=== PATIENT | male | born 1935 | race Caucasian/White ===

== ENCOUNTER 2017-06-22 21:01 | Inpatient (IN) ==
[2017-06-22] MEDS ORDERED: IOPAMIDOL 100 ML BOTTLE IJ ONE (21:02)
[2017-06-22] MEDS ORDERED: 0.9 % SODIUM CHLORIDE 1,000 ML IV ONE (21:22)
[2017-06-22] MEDS ORDERED: MINERAL OIL 1 DOSE ENEMA PR ONE ×2 (21:36→23:51)
[2017-06-22] MEDS ORDERED: FLEETS ADULT ENEMA PR ONE (21:57)
[2017-06-22] MEDS ORDERED: HYDROmorphone 2 MG/ML SYRINGE IV SCH (22:00)
[2017-06-22] MEDS: HYDROmorphone 2 MG/ML SYRINGE IV PRN (22:15)
[2017-06-22 22:27] LABS: Basophils # (Auto) 0 K/mcL (0.0-0.3); Basophils % (Auto) 0.4 % (0.0-2.0); Eosinophils # (Auto) 0.2 K/mcL (0.0-0.7); Granulocytes % (Auto) 71.9 % (38.0-78.0); Lymphocytes # (Auto) 1.4 K/mcL (1.5-4.8); Lymphocytes % (Auto) 17.3 % (15.5-49.0); Mean Corpuscular HGB Conc 33.7 g/dL (31.0-36.0); Mean Corpuscular Hemoglobin 30.7 pg (26.0-34.0); Monocytes # (Auto) 0.6 K/mcL (0.1-0.9); Monocytes % (Auto) 7.4 % (1.0-12.0); Platelet Count 185 K/mcL (140-440); RBC 4.93 M/mcL (4.50-5.90); Red Cell Distribution Width 12.8 % (11.5-14.5)
[2017-06-22 22:45] LABS: ALT/SGPT 28 U/l (0-40); Albumin 4.3 gm/dL (3.2-5.2); Alkaline Phosphatase 64 U/L (39-117); Blood Urea Nitrogen 32 mg/dl (8-23)
[2017-06-22] MEDS ORDERED: HYDROmorphone 2 MG/ML SYRINGE IV ONE (23:50)
[2017-06-23] MEDS: HYDROmorphone 2 MG/ML SYRINGE IV PRN ×9 (01:06→23:18)
[2017-06-23] MEDS ORDERED: GLYCERIN, ADULT 1 SUPP.RECT PR ONE (01:28)
[2017-06-23] MEDS ORDERED: ONDANSETRON ODT 4 MG TABLET ONE (01:36)
[2017-06-23] MEDS ORDERED: NALOXONE HCL 0.4 MG/ML VIAL IV PRN (04:03)
[2017-06-23] MEDS ORDERED: ONDANSETRON 4 MG/2 ML VIAL IV PRN (04:03)
[2017-06-23] MEDS ORDERED: POLYETHYLENE GLYCOL 3350 17 GM PACKET PO ONE (04:08)
--- NOTE | 2017-06-23 04:10 | Emergency Department Note ---
Abdominal Pain HPI - General Chief Complaint: Abdominal Pain Stated Complaint: abdominal pain Time Seen by Provider: 06/22/17 21:09 Source: patient Mode of arrival: ambulatory Limitations: no limitations - History of Present Illness HPI Narrative: 81-year-old male with rectal pain since 4 PM on 06/22/2017 and constipation without bowel movement 5 days. Also with belly pain in the lower quadrants. He has had episodes like this 3 times before, where his bowels would not move for a week, but they have always resolved with significant interventions to relieve constipation. In particular the last time he was in, what sounds like a soapsuds enema was used with good results. Prior to coming in, he used a suppository earlier this week and Dulcolax without effect. He does have a significant history of prior colectomy from Dr. Carr many years ago and has had difficulty moving his bowels ever since - Related Data Home Medications Medication Instructions Recorded Confirmed amlodipine 5 mg tablet 5 mg PO QDAY 05/21/17 05/21/17 atorvastatin 40 mg tablet 40 mg PO QDAY 05/21/17 05/21/17 losartan 100 1 tab PO QDAY 05/21/17 05/21/17 mg-hydrochlorothiazide 25 mg tablet multivitamin tablet 1 tab-cap PO QDAY 05/21/17 05/21/17 tramadol 50 mg tablet 50 mg PO Q4H PRN tab 05/21/17 05/21/17 fentanyl 50 mcg/hr transdermal 1 patch TRANSDERMA Q72H 05/29/17 05/29/17 patch Allergies Allergy/AdvReac Type Severity Reaction Status Date / Time codeine Allergy Unknown Unknown Verified 06/22/17 21:05 Methadone Allergy Unknown Unknown Verified 06/22/17 21:05 Oxycodone Allergy Unknown Unknown Verified 06/22/17 21:05 Review of Systems All systems ED: reviewed and negative except as stated. Abdominal Pain PMH - Past Medical History Attestation: Yes: The following information was validated with the patient. Medical history: Reports: arthritis, coronary artery disease, hyperlipidemia, hypertension, kidney stones, thyroid disease Surgical history ED: Reports: cholecystectomy, colectomy, tonsillectomy - Social History Smoking status: Never smoker Physical Exam Hunched over in the position secondary to cramping abdominal pain. normocephalic atraumatic. Conjunctive are clear sclerae were nonicteric. No nasal discharge or congestion. Oropharynx pink and moist. Neck is supple without lymphadenopathy thyromegaly. Heart is regular rate and rhythm no murmurs appreciated. Lungs clear to auscultation bilaterally without wheezes rales rhonchi or respiratory distress. Abdomen is soft nontender except for lower quadrants are diffusely tender. No CVA tenderness or peritoneal signs. Some guarding but no rigidity. He does have some hyperactive bowel sounds in the right lower quadrant. No pedal edema. +2 radial pulse. Alert oriented and able to answer questions. No dysarthria or ataxia - General Limitations: no limitations Course Vital Signs Temperature 98.9 F 06/22/17 21:01 Pulse Rate 96 H 06/22/17 21:01 Respiratory Rate 20 06/22/17 21:01 Blood Pressure 127/78 06/22/17 21:01 Pulse Oximetry (%) 97 06/22/17 21:01 Temperature 98.9 F 06/22/17 21:01 Pulse Rate 78 06/22/17 23:39 Respiratory Rate 12 06/22/17 23:39 Blood Pressure 133/85 06/22/17 23:39 Pulse Oximetry (%) 95 06/22/17 23:39 Abdominal Pain - Lab Data Lab results reviewed: Yes I reviewed the patient's lab results. Result diagrams: 06/22/17 21:22 06/22/17 21:21 Lab Results 06/22/17 06/22/17 06/22/17 Range/Units 21:21 21:22 21:43 WBC 8.2 (4.5-11.0) K/mcL RBC 4.93 (4.50-5.90) M/mcL Hgb 15.1 (13.5-16.5) g/dL Hct 44.8 (41.0-55.0) % MCV 91.0 (80.0-100.0) fL MCH 30.7 (26.0-34.0) pg MCHC 33.7 (31.0-36.0) g/dL RDW 12.8 (11.5-14.5) % Plt Count 185 (140-440) K/mcL MPV 10.5 H (7.4-10.4) fL Gran % 71.9 (38.0-78.0) % Lymph % (Auto) 17.3 (15.5-49.0) % Wagoner % (Auto) 7.4 (1.0-12.0) % Eos % (Auto) 3.0 (0.0-7.0) % Baso % (Auto) 0.4 (0.0-2.0) % Gran # 5.9 (1.8-8.0) K/mcL Lymph # (Auto) 1.4 L (1.5-4.8) K/mcL Wagoner # (Auto) 0.6 (0.1-0.9) K/mcL Eos # (Auto) 0.2 (0.0-0.7) K/mcL Baso # (Auto) 0 (0.0-0.3) K/mcL VBG Lactic Acid 1.5 (0.5-2.2) mmol/L Sodium 140 (133-145) mmol/L Potassium 4.1 (3.3-5.1) mmol/L Chloride 102 (96-108) mmol/L Carbon Dioxide 24 (22-30) mmol/L Anion Gap 14.0 (8-16) BUN 32 H (8-23) mg/dl Creatinine 1.1 (0.7-1.2) mg/dl GFR Calculation 64 Glucose 99 (70-105) mg/dL Calcium 9.0 (8.6-10.4) mg/dl Total Bilirubin 0.7 (0.0-1.0) mg/dL AST 23 (0-37) U/l ALT 28 (0-40) U/l Alkaline Phosphatase 64 (39-117) U/L Total Protein 6.5 (5.9-8.4) gm/dL Albumin 4.3 (3.2-5.2) gm/dL Globulin 2.2 (2.2-3.7) gm/dL Albumin/Globulin Ratio 2.0 (1.0-2.3) - Radiology Data Radiology results reviewed: Yes I reviewed the patient's radiology results. Abdominal x-ray series shows nonspecific bowel gas pattern with lots of stool Disposition Pt seen by [facility] only: No Clinical Impression: Abdominal pain Qualifiers: Abdominal location: generalized Qualified Code(s): R10.84 - Generalized abdominal pain Constipation Qualifiers: Constipation type: unspecified constipation type Qualified Code(s): K59.00 - Constipation, unspecified Summary: We initially tried to relieve his constipation with fleets enema. Nursing staff attempted manual disimpaction as well, but the rectal vault just had soft stool in it. However he had poor rectal tone despite 2 fleets enemas to soapsuds enemas as suppository were unable to successfully produce a significant bowel movement. It was very irritating to his rectum. He had several doses of pain medicines in an attempt to control his belly pain as well. After attempting all this I did call Dr. Cj Rodriguez who advised me to try milk/ molasses enema. This was not successful either. Dr. Rodriguez advised me to go ahead and admit the patient to him for further care: In the interim we will go ahead and do another milk molasses enema, and allow him to sip on some MiraLAX. Transition orders are written Disposition: Xfer As Outpt/Obs ([facility]) Condition: Serious Referrals: Morro Goodwin DO [Primary Care Provider] -
[2017-06-23] MEDS ORDERED: IOPAMIDOL 100 ML BOTTLE IV ONE (05:07)
[2017-06-23] MEDS: 0.9 % SODIUM CHLORIDE 1,000 ML IV SCH ×3 (05:42→15:42)
[2017-06-23] MEDS: METHYLNALTREXONE BROMIDE 12 MG/0.6 ML SYRINGE SQ SCH (08:09)
[2017-06-23] MEDS: METOCLOPRAMIDE 10 MG/2 ML VIAL IV SCH ×4 (08:09→23:25)
--- NOTE | 2017-06-23 08:10 | XRay Report ---
CLINICAL INFORMATION: Abdominal pain COMPARISON: None. FINDINGS: Large amount of stool is present within the colon. Colon remains normal caliber. Stomach and small bowel are normal. No free air or pathologic calcification. Chronic elevation right diaphragm seen as before IMPRESSION: Moderate colonic stool, but no acute disease Interpreted and Authenticated by: Morro Madrigal 06/23/17
--- NOTE | 2017-06-23 10:04 | Cat Scan Report ---
CLINICAL INFORMATION: Constipation and abdominal pain COMPARISON: 01/05/[address] TECHNIQUE: Following enteric contrast, 80 cc of Isovue-300 were injected intravenously, and 60 seconds later, 2.5 mm helical slices were obtained from the mid heart through the subtrochanteric regions. Following reconstruction, 2.5 mm sagittal, coronal and axial reformatted images were processed and reviewed at bone, lung and soft tissue windows. Five minutes later, 5 mm helical slices were obtained from the mid heart through the kidneys and viewed at soft tissue windows. FINDINGS: Marked chronic elevation right diaphragm with subsegmental atelectasis in the overlying lower lobe demonstrates long-term stability. The remaining lung bases are normal. There is no effusions. The visualized heart is mildly enlarged and there is heavy fibrofatty and calcified atherosclerotic plaque in the visualized coronary arteries - particularly the LAD. Suspect stenosis or occlusion in this region. A moderate size hiatal hernia has increased from the previous study Images through the abdomen show the liver to be normal in size without focal lesion. The gallbladder is surgically absent. Intrahepatic and common bile ducts are normal caliber colon CBD is 6 mm. The pancreas, spleen, both adrenal glands kidneys and aorta, including aortic branches, are normal in size, configuration and attenuation without focal lesion. No free air, free fluid or adenopathy. There is a large amount of stool distending the rectum with a moderate amount of stool in the remaining colon. The colon, appendix and small bowel are normal in caliber however. On axial image 56, there is a diverticulum or atypical ulcer in the anterior wall of the gastric antrum. This is new from the previous study The urinary bladder, prostate and seminal vesicles are normal. There is no free air, free fluid and no adenopathy. Bone windows show postsurgical changes in lower lumbar spine, but no significant osseous abnormality.A 7 cm by 2.2 cm cyst within the left iliopsoas muscle belly is identical to the 2012 study. IMPRESSION: 1. Large amount of stool within the rectum with a moderate amount colonic stool compatible with constipation. 2. 17 mm ulcer versus diverticulum in the anterior wall of the gastric antrum. Suggest medical treatment for ulcer and consider endoscopic correlation. If this does represent an ulcer, the patient may be at risk for rupture 3. Extremely heavy fibrofatty calcific plaque within the left main and LAD coronary arteries. Suspect hemodynamically significant stenosis. Consider cardiology referral for stress testing or CT coronary arteriogram 4. Chronic elevation right diaphragm with compressive atelectasis in the right lower lobe - stable 5. Moderate size hiatal hernia - slight increase in 2012 6. 7 x 2 cm cyst in the left iliopsoas muscle belly - stable since 2012. If asymptomatic, this would be clinically insignificant Interpreted and Authenticated by: Morro Madrigal 06/23/17
--- NOTE | 2017-06-23 10:29 | XRay Report ---
CLINICAL INFORMATION: ,Severe constipation COMPARISON: None. FINDINGS: Large amount of stool present within the colon. The colon small bowel, and stomach are normal caliber however. No free air soft tissue mass or organomegaly. Contrast seen in the urinary bladder appears normal IMPRESSION: Moderate colonic stool - no acute disease Interpreted and Authenticated by: Morro Madrigal 06/23/17
--- NOTE | 2017-06-23 13:56 | General Surg History&Physical ---
History of Present Illness Patient information: Note initiated : 06/23/17 at 1:53 pm Service Date, if different from initiated Date: [] Patient: Sven Michaels 81 y/o M admitted on 06/23/17 for abdominal pain. Chief Complaint: [] Chief complaint: Severe constipation HPI: Mr. Michaels is a 81 year old M 81-year-old male with greater than 24 hour history of crampy abdominal pain with inability to have a bowel movement for the past 5 days. He takes tramadol on a daily basis for many years. He also recently used transdermal fentanyl but stopped that because of nausea and vomiting. He tried multiple njec-[id number]-bqoxpsy remedies prior to coming to the emergency room without results. He was seen in the emergency room and was noted to have a large fecal ball in his rectum. He had multiple enemas including fleets, mineral oil, sepsis, milk of molasses.; All without results he was having more crampy abdominal pain and has been admitted for continued treatment. He gives a history of having had partial colectomy in the past and states that he has had symptoms since that time. The reason for the partial colectomy is not known. Review of Systems - Constitutional fatigue, malaise, weakness - EENT Nose, mouth and throat: abnormal hearing, dizziness - Cardiovascular dyspnea on exertion, no chest pain at rest, no claudication, no edema, no palpatations, no pedal edema - Respiratory no cough, no dyspnea on exertion, no wheezing - Gastrointestinal abdominal pain, bloating, change in bowel habits, constipation, cramping - Genitourinary urinary hesitancy, urinary urgency, other (History of kidney stones) - Musculoskeletal back pain (Never happened), joint swelling, myalgias - Integumentary other (History of skin cancer) - Neurological dizziness, tremor(s), vertigo, weakness - Psychiatric visual hallucinations - Endocrine excessive sweating, heat intolerance - Hematologic/Lymphatic no easy bleeding, no easy bruising, no lymphadenopathy - Allergic/Immunologic no tongue swelling, no throat swelling, no uticaria, no wheezing, no lip swelling Past History Past medical history: Degenerative arthritis Coronary artery disease with minimal stenosis by angiogram Hyperlipidemia Hypertension History of kidney stones Hypothyroidism Multiple skin cancers Past surgical history: Cholecystectomy Partial colectomy Past family history: Hypertension Past social history: Former smoker Former drinker Denies drug use Is Medications and Allergies Home Medications Medication Instructions Recorded Confirmed Type amlodipine 5 mg tablet 5 mg PO QDAY 05/21/17 06/23/17 History atorvastatin 40 mg tablet 40 mg PO QDAY 05/21/17 06/23/17 History losartan 100 1 tab PO QDAY 05/21/17 06/23/17 History mg-hydrochlorothiazide 25 mg tablet multivitamin tablet 1 tab-cap PO QDAY 05/21/17 06/23/17 History tramadol 50 mg tablet 100 mg PO DAILY tab 05/21/17 06/23/17 History traMADol 50 mg PO HS 06/23/17 06/23/17 History Allergies Allergy/AdvReac Type Severity Reaction Status Date / Time codeine Allergy Unknown Unknown Verified 06/22/17 21:05 Methadone Allergy Unknown Unknown Verified 06/22/17 21:05 Oxycodone Allergy Unknown Unknown Verified 06/22/17 21:05 Exam Temp Pulse Resp BP Pulse Ox 98.5 F 78 18 116/72 97 06/23/17 11:45 06/23/17 06:16 06/23/17 11:45 06/23/17 11:45 06/23/17 11:45 - General physical appearance well developed, well nourished, moderate distress, moderate pain - Eyes PERRL, normal ocular movement - ENT normal pinna, normal nares, normal mucosa, no hearing loss, no congestion - Head Head exam IM: Present: atraumatic, normocephalic - Neck no masses, no bruits, trachea midline, no lymphadectomy, no venous distension - Cardiovascular Cardiovascular exam IM: Present: normal rate and rhythm, RRR, +S1, +S2. Absent : JVD Type of murmur IM: Present: blowing, systolic Intensity IM: 2/6 - Respiratory normal expansion, normal respiratory effort, clear to percussion, clear to auscultation - Abdomen Abdomen: Present: soft, tender, bowel sounds, distended (Mild distention of lower abdomen with tenderness in the hypogastric area; good active bowel sounds ; well-healed incision in right subcostal and midline from xiphoid to pubis) Hernia: Present: none - Genitourinary Present: normal penis with no external lesions - Rectum Rectum: Present: normal sphincter tone, no hemorrhoids, no tenderness, no masses , no bleeding - Integumentary Present: no rash, no growths, no abnormal pigmentation - Neurologic Present: normal coordination, normal sensation - Musculoskeletal Present: normal gait, normal posture - Psychiatric Present: oriented to time, oriented to person, oriented to place, speech is normal, memory intact Assessment and Plan (1) Constipation due to pain medication therapy Relistor 12 mg subcu daily Reglan 10 mg IV every 6 MiraLAX 17 g in 8 ounces of liquid every 6 hours Follow-up abdominal x-rays in the morning Status: Acute (2) Osteoarthritis Status: Chronic (3) Hypothyroidism Status: Chronic (4) Back pain Status: Chronic (5) Joint pain Status: Chronic (6) Hypertension, essential Reinstitute antihypertensives when blood pressure is elevated more Status: Chronic (7) CAD (coronary artery disease) Status: Chronic Comment: cardiac cath in [place] indicated minimal CAD
[2017-06-23] MEDS: POLYETHYLENE GLYCOL 3350 17 GM PACKET PO SCH ×2 (15:39→20:16)
[2017-06-23] MEDS ORDERED: ACETAMINOPHEN 325 MG TABLET PO ONE (23:49)
[2017-06-24] MEDS: POLYETHYLENE GLYCOL 3350 17 GM PACKET PO SCH ×4 (02:06→20:43)
[2017-06-24] MEDS: 0.9 % SODIUM CHLORIDE 1,000 ML IV SCH ×2 (04:00→11:30)
[2017-06-24] MEDS: METOCLOPRAMIDE 10 MG/2 ML VIAL IV SCH ×4 (05:42→23:33)
[2017-06-24 06:03] LABS: Basophils # (Auto) 0 K/mcL (0.0-0.3); Basophils % (Auto) 0.2 % (0.0-2.0); Eosinophils # (Auto) 0.1 K/mcL (0.0-0.7); Eosinophils % (Auto) 0.8 % (0.0-7.0); Granulocytes % (Auto) 80.6 % (38.0-78.0); Lymphocytes # (Auto) 1.3 K/mcL (1.5-4.8); Lymphocytes % (Auto) 9.9 % (15.5-49.0); Mean Cell Volume 92.2 fL (80.0-100.0); Mean Corpuscular Hemoglobin 31.3 pg (26.0-34.0); Monocytes # (Auto) 1.2 K/mcL (0.1-0.9); Monocytes % (Auto) 8.5 % (1.0-12.0); Platelet Count 158 K/mcL (140-440); RBC 4.29 M/mcL (4.50-5.90); Red Cell Distribution Width 12.7 % (11.5-14.5)
[2017-06-24 06:24] LABS: Blood Urea Nitrogen 16 mg/dl (8-23)
--- NOTE | 2017-06-24 08:54 | XRay Report ---
CLINICAL INFORMATION: Constipation COMPARISON: 06/23/2017. FINDINGS: There is only minimal colonic stool on today's study following presumed colonic cleansing. Stool gas pattern is normal. No free air, pathologic calcification or soft tissue mass. Chronic elevation right diaphragm is unchanged IMPRESSION: Only minimal stool following colonic cleansing. No acute disease Interpreted and Authenticated by: Morro Madrigal 06/24/17
[2017-06-24] MEDS: HYDROmorphone 2 MG/ML SYRINGE IV PRN ×2 (09:21→15:20)
[2017-06-24] MEDS: METHYLNALTREXONE BROMIDE 12 MG/0.6 ML SYRINGE SQ SCH (09:22)
[2017-06-24] MEDS ORDERED: PNEUMOCOCCAL 23-VAL P-SAC VAC 0.5 ML VIAL IM ONE (10:00)
[2017-06-24] MEDS: metroNIDAZOLE 500 MG/100 ML BAG IV SCH ×3 (13:53→23:33)
[2017-06-24] MEDS: PIPERACILLIN SODIUM/TAZOBACTAM 3.375 GM in DEXTROSE 5% IN WATER 50 ML IV SCH ×3 (14:48→20:43)
--- NOTE | 2017-06-24 15:10 | General Surgery Progress Note ---
Subjective Patient reports: feels better, pain is less, tolerating liquids well, flatus, bowel movement, fever Narrative: Note initiated : 06/24/17 at 3:08 pm Service Date, if different from initiated Date: [] Patient: Sven Michaels 81 y/o M admitted on 06/23/17 for Abdominal Pain/ Constipation. Chief Complaint: [Patient feels much better today. He had multiple large bowel movements since last evening and his stools are now loose. He does not have any discomfort but he had fever last evening and his white blood count today is 13.5. He does not have a clinical picture of an acute abdomen but he will need to be started on antibiotics. He denies nausea or vomiting. X-ray this morning shows gas throughout his colon but significant reduction in the fecal load in his colon.] Objective Temp Pulse Resp BP Pulse Ox 98.3 F 66 14 108/71 95 06/24/17 11:58 06/24/17 11:58 06/24/17 11:58 06/24/17 11:58 06/24/17 11:58 - Additional Data Intake & Output - Last 24 hours: Intake & Output 06/22/17 06/23/17 06/24/17 06/25/17 05:59 05:59 05:59 05:59 Intake Total 1893 / 1893 1415 / 1415 Output Total 2175 / 2175 950 / 950 Balance -282 / -282 465 / 465 Weight 218 lb 8 oz - General physical appearance well developed, no distress, no pain, chronically ill - Eyes PERRL - ENT no congestion - Neck no venous distension - Respiratory normal respiratory effort, clear to auscultation - Cardiovascular Cardiovascular exam: Present: irregular rhythm, +S1, +S2, systolic murmur. Absent: gallop, JVD - Abdomen soft, non tender, bowel sounds (Abdomen is nondistended and he has very active bowel sounds without tenderness or guarding) - Integumentary no rash, no growths, no abnormal pigmentation - Neurologic normal coordination, normal sensation - Musculoskeletal normal gait, normal posture - Psychiatric oriented to time, oriented to person, oriented to place, speech is normal, memory intact - Labs 06/24/17 05:00 06/24/17 05:00 Diabetes panel 06/24/17 Range/Units 05:00 Sodium 137 (133-145) mmol/L Potassium 3.9 (3.3-5.1) mmol/L Chloride 101 (96-108) mmol/L Carbon Dioxide 23 (22-30) mmol/L BUN 16 (8-23) mg/dl Creatinine 0.9 (0.7-1.2) mg/dl Glucose 112 H (70-105) mg/dL Calcium 8.3 L (8.6-10.4) mg/dl Calcium panel 06/24/17 Range/Units 05:00 Calcium 8.3 L (8.6-10.4) mg/dl Pituitary panel 06/24/17 Range/Units 05:00 Sodium 137 (133-145) mmol/L Potassium 3.9 (3.3-5.1) mmol/L Chloride 101 (96-108) mmol/L Carbon Dioxide 23 (22-30) mmol/L BUN 16 (8-23) mg/dl Creatinine 0.9 (0.7-1.2) mg/dl Glucose 112 H (70-105) mg/dL Calcium 8.3 L (8.6-10.4) mg/dl Adrenal panel 06/24/17 Range/Units 05:00 Sodium 137 (133-145) mmol/L Potassium 3.9 (3.3-5.1) mmol/L Chloride 101 (96-108) mmol/L Carbon Dioxide 23 (22-30) mmol/L BUN 16 (8-23) mg/dl Creatinine 0.9 (0.7-1.2) mg/dl Glucose 112 H (70-105) mg/dL Calcium 8.3 L (8.6-10.4) mg/dl Assessment and Plan (1) Constipation due to pain medication therapy Status: Acute Assessment and plan: Significantly improved; will give another dose of Relistor in the morning and make plans for probable discharge Current Visit: Yes (2) Osteoarthritis Status: Chronic Current Visit: No (3) Hypothyroidism Status: Chronic Current Visit: No (4) Back pain Status: Chronic Current Visit: No (5) Joint pain Status: Chronic Current Visit: No (6) Hypertension, essential Status: Chronic Current Visit: No (7) CAD (coronary artery disease) Problem details: cardiac cath in [place] indicated minimal CAD Status: Chronic Current Visit: No - Time Spent With Patient Total time spent is greater than 50% in coordination of care (as documented) at patient's floor/unit and/or counseling patient:
[2017-06-25] MEDS: PIPERACILLIN SODIUM/TAZOBACTAM 3.375 GM in DEXTROSE 5% IN WATER 50 ML IV SCH ×4 (01:50→20:57)
[2017-06-25] MEDS: POLYETHYLENE GLYCOL 3350 17 GM PACKET PO SCH ×4 (01:54→20:57)
[2017-06-25] MEDS: metroNIDAZOLE 500 MG/100 ML BAG IV SCH ×4 (05:03→23:32)
[2017-06-25] MEDS: METOCLOPRAMIDE 10 MG/2 ML VIAL IV SCH ×4 (05:25→23:32)
[2017-06-25 05:51] LABS: Basophils # (Auto) 0 K/mcL (0.0-0.3); Basophils % (Auto) 0.4 % (0.0-2.0); Eosinophils # (Auto) 0.3 K/mcL (0.0-0.7); Granulocytes % (Auto) 77.8 % (38.0-78.0); Lymphocytes # (Auto) 1.3 K/mcL (1.5-4.8); Lymphocytes % (Auto) 11.3 % (15.5-49.0); Mean Cell Volume 92.1 fL (80.0-100.0); Mean Corpuscular Hemoglobin 31.3 pg (26.0-34.0); Monocytes # (Auto) 0.9 K/mcL (0.1-0.9); Monocytes % (Auto) 7.5 % (1.0-12.0); Platelet Count 161 K/mcL (140-440); RBC 4.31 M/mcL (4.50-5.90); Red Cell Distribution Width 12.5 % (11.5-14.5)
[2017-06-25 06:14] LABS: ALT/SGPT 27 U/l (0-40); Albumin 3.2 gm/dL (3.2-5.2); Albumin/Globulin Ratio 1.3 (1.0-2.3); Alkaline Phosphatase 55 U/L (39-117); Bilirubin,Direct 0.3 mg/dL (0.0-0.3); Blood Urea Nitrogen 12 mg/dl (8-23); Gamma Glutamyl Transpeptidase 16 U/L (8-61); Magnesium 2.1 mg/dL (1.6-2.5); Uric Acid 3.6 mg/dL (2.5-8.0)
--- NOTE | 2017-06-25 08:17 | XRay Report ---
CLINICAL INFORMATION: Follow constipation COMPARISON: 06/24/2017 FINDINGS: There are scattered air-fluid levels within nondilated small and large bowel. Findings most compatible with mild ileus. There is no significant stool remaining within the colon. No free air, soft tissue mass or organomegaly. The right diaphragm is markedly elevated IMPRESSION: No residual stool following colonic cleansing. Mild ileus pattern Interpreted and Authenticated by: Morro Madrigal 06/25/17
[2017-06-25] MEDS: METHYLNALTREXONE BROMIDE 12 MG/0.6 ML SYRINGE SQ SCH (08:52)
[2017-06-25] MEDS: ACETAMINOPHEN 325 MG TABLET PO PRN ×2 (11:39→22:28)
[2017-06-25] MEDS ORDERED: POTASSIUM PHOSPHATE 40 MEQ in DEXTROSE 5% IN WATER 500 ML IV ONE (13:00)
--- NOTE | 2017-06-25 15:09 | General Surgery Progress Note ---
Subjective Patient reports: still having pain, tolerating a regular diet, flatus, bowel movement, diarrhea, fever Narrative: Note initiated : 06/25/17 at 3:08 pm Service Date, if different from initiated Date: [] Patient: Sven Michaels 81 y/o M admitted on 06/23/17 for Abdominal Pain/ Constipation. Chief Complaint: [Patient states that he does not feel as well as on yesterday. He had lower abdominal pain with low grade fever last evening. He feels better now. He is still having multiple liquid stools. Repeat CT was done and this shows a thickened rectum with some inflammation in the perirectal space of uncertain etiology. Musculoskeletal possibility of stercoral rashes ulcer or severe proctitis. Discussed with him the potential need for colonoscopy. I will determine over the next day or so whether or not it should be done this hospitalization or if he can be discharged and have the procedure done as an outpatient. He has not had rectal bleeding documented but will get Hemoccults OF His next 3 bowel movements.] Objective Temp Pulse Resp BP Pulse Ox 98.1 F 65 16 111/62 96 06/25/17 11:57 06/25/17 03:25 06/25/17 11:57 06/25/17 11:57 06/25/17 11:57 - Additional Data Intake & Output - Last 24 hours: Intake & Output 06/23/17 06/24/17 06/25/17 06/26/17 05:59 05:59 05:59 05:59 Intake Total 1893 / 1893 2835 / 2835 830 / 830 Output Total 2175 / 2175 2125 / 2125 Balance -282 / -282 710 / 710 830 / 830 Weight 218 lb 8 oz 219 lb 219 lb - General physical appearance moderate distress, moderate pain, chronically ill - Eyes PERRL - ENT no congestion - Neck no venous distension - Respiratory clear to auscultation - Cardiovascular Cardiovascular exam: Present: normal rate and rhythm, RRR, +S1, +S2. Absent: gallop, JVD, rubs - Abdomen soft, non tender (Abdomen is soft nondistended and nontender with good active bowel sounds. There is no palpable mass) - Genitourinary normal penis with no external lesions, testicles present, testicles non-tender - Rectum no hemorrhoids, no tenderness, no bleeding - Integumentary no rash, no growths, no abnormal pigmentation - Neurologic normal coordination, normal sensation - Musculoskeletal normal gait, normal posture - Psychiatric oriented to time, oriented to person, oriented to place, speech is normal, memory intact - Labs 06/25/17 04:42 06/25/17 04:42 Diabetes panel 06/25/17 Range/Units 04:42 Sodium 141 (133-145) mmol/L Potassium 4.1 (3.3-5.1) mmol/L Chloride 104 (96-108) mmol/L Carbon Dioxide 25 (22-30) mmol/L BUN 12 (8-23) mg/dl Creatinine 1.0 (0.7-1.2) mg/dl Glucose 102 (70-105) mg/dL Calcium 8.3 L (8.6-10.4) mg/dl AST 22 (0-37) U/l ALT 27 (0-40) U/l Alkaline Phosphatase 55 (39-117) U/L Total Protein 5.6 L (5.9-8.4) gm/dL Albumin 3.2 (3.2-5.2) gm/dL Triglycerides 60 (<150) mg/dl Calcium panel 06/25/17 Range/Units 04:42 Calcium 8.3 L (8.6-10.4) mg/dl Phosphorus 2.5 L (2.7-4.5) mg/dL Albumin 3.2 (3.2-5.2) gm/dL Pituitary panel 06/25/17 Range/Units 04:42 Sodium 141 (133-145) mmol/L Potassium 4.1 (3.3-5.1) mmol/L Chloride 104 (96-108) mmol/L Carbon Dioxide 25 (22-30) mmol/L BUN 12 (8-23) mg/dl Creatinine 1.0 (0.7-1.2) mg/dl Glucose 102 (70-105) mg/dL Calcium 8.3 L (8.6-10.4) mg/dl Adrenal panel 06/25/17 Range/Units 04:42 Sodium 141 (133-145) mmol/L Potassium 4.1 (3.3-5.1) mmol/L Chloride 104 (96-108) mmol/L Carbon Dioxide 25 (22-30) mmol/L BUN 12 (8-23) mg/dl Creatinine 1.0 (0.7-1.2) mg/dl Glucose 102 (70-105) mg/dL Calcium 8.3 L (8.6-10.4) mg/dl Total Bilirubin 1.3 H (0.0-1.0) mg/dL AST 22 (0-37) U/l ALT 27 (0-40) U/l Alkaline Phosphatase 55 (39-117) U/L Total Protein 5.6 L (5.9-8.4) gm/dL Albumin 3.2 (3.2-5.2) gm/dL Assessment and Plan (1) Constipation due to pain medication therapy Status: Acute Assessment and plan: Significantly improved; will continue on present therapy Current Visit: Yes (2) Osteoarthritis Status: Chronic Current Visit: No (3) Hypothyroidism Status: Chronic Current Visit: No (4) Back pain Status: Chronic Current Visit: No (5) Joint pain Status: Chronic Current Visit: No (6) Hypertension, essential Status: Chronic Current Visit: No (7) CAD (coronary artery disease) Problem details: cardiac cath in [place] indicated minimal CAD Status: Chronic Current Visit: No - Time Spent With Patient Total time spent is greater than 50% in coordination of care (as documented) at patient's floor/unit and/or counseling patient:
--- NOTE | 2017-06-25 15:41 | Cat Scan Report ---
CLINICAL INFORMATION: Constipation and abdominal pain COMPARISON: 01/05/2012 and 06/23/[address] TECHNIQUE: Following enteric contrast, 80 cc of Isovue-300 were injected intravenously, and 60 seconds later, 2.5 mm helical slices were obtained from the mid heart through the subtrochanteric regions. Following reconstruction, 2.5 mm sagittal, coronal and axial reformatted images were processed and reviewed at bone, lung and soft tissue windows. Five minutes later, 5 mm helical slices were obtained from the mid heart through the kidneys and viewed at soft tissue windows. FINDINGS: Moderate chronic elevation right diaphragm resulting in mild atelectasis in the overlying right lung base - as previously seen. No effusions. Images through the abdomen show the liver is normal in size and configuration without focal lesion. The gallbladder is surgically absent. The bile ducts are normal caliber - CBD 6 mm. Both kidneys, adrenal glands, spleen, pancreas and aorta , including aortic branches , are normal in size, configuration and attenuation without focal lesion. Images through the pelvis show prostate is mildly enlarged 5.6 centimeters by unchanged . There is mild wall thickening of the urinary bladder with a small amount of gas seen in the bladder lumen which presumably is related to prior Heaton catheter placement. The 7 x 2.2 cm cyst in the left iliopsoas demonstrates long-term stability. There is mild concentric wall thickening of the distal sigmoid and rectum with inflammation in the perirectal soft tissue particularly the presacral space. It was not seen on the older study from 2011; however, it was seen in retrospect on the most recent CT two days prior and is unchanged. This is the entire phlegmon without evidence of abscess. The remaining colon, including the appendix and small bowel is normal. Moderate hiatal hernia again noted. Bone windows show no significant osseous abnormality IMPRESSION: 1. Moderate concentric wall thickening of the rectum with phlegmon in the perirectal fat - particularly the presacral region. Findings compatible with proctitis. No evidence of abscess , however. Colonic stool has been partially evacuated since the previous study. 2. Chronic elevation right diaphragm with subsegmental atelectasis in the right lung base - stable 3. Moderate lytic hiatal hernia - stable 4. 7 x 2 cm cyst in the left iliopsoas muscle demonstrates long-term stability 5. The ulceration or diverticulum, previously described in anterior wall of the gastric antrum is not apparent in this particular study. Interpreted and Authenticated by: Morro Mdarigal 06/25/17
[2017-06-26] MEDS: POLYETHYLENE GLYCOL 3350 17 GM PACKET PO SCH ×2 (02:51→09:31)
[2017-06-26] MEDS: PIPERACILLIN SODIUM/TAZOBACTAM 3.375 GM in DEXTROSE 5% IN WATER 50 ML IV SCH ×2 (02:51→08:05)
[2017-06-26] MEDS: metroNIDAZOLE 500 MG/100 ML BAG IV SCH (04:54)
[2017-06-26] MEDS: ACETAMINOPHEN 325 MG TABLET PO PRN (04:55)
[2017-06-26] MEDS: METOCLOPRAMIDE 10 MG/2 ML VIAL IV SCH (04:55)
[2017-06-26 07:15] LABS: Basophils # (Auto) 0 K/mcL (0.0-0.3); Basophils % (Auto) 0.3 % (0.0-2.0); Eosinophils # (Auto) 0.7 K/mcL (0.0-0.7); Eosinophils % (Auto) 7.2 % (0.0-7.0); Granulocytes % (Auto) 69.9 % (38.0-78.0); Lymphocytes # (Auto) 1.4 K/mcL (1.5-4.8); Lymphocytes % (Auto) 14.7 % (15.5-49.0); Mean Cell Volume 91.2 fL (80.0-100.0); Mean Corpuscular HGB Conc 33.7 g/dL (31.0-36.0); Mean Corpuscular Hemoglobin 30.7 pg (26.0-34.0); Monocytes # (Auto) 0.7 K/mcL (0.1-0.9); Monocytes % (Auto) 7.9 % (1.0-12.0); Platelet Count 178 K/mcL (140-440); RBC 4.71 M/mcL (4.50-5.90); Red Cell Distribution Width 12.3 % (11.5-14.5)
[2017-06-26 07:44] LABS: ALT/SGPT 31 U/l (0-40); Albumin/Globulin Ratio 1.7 (1.0-2.3); Alkaline Phosphatase 53 U/L (39-117); Bilirubin,Direct 0.2 mg/dL (0.0-0.3); Blood Urea Nitrogen 8 mg/dl (8-23); Gamma Glutamyl Transpeptidase 17 U/L (8-61); Magnesium 2.1 mg/dL (1.6-2.5); Uric Acid 3.1 mg/dL (2.5-8.0)
[2017-06-26] MEDS: METHYLNALTREXONE BROMIDE 12 MG/0.6 ML SYRINGE SQ SCH (09:30)
--- NOTE | 2017-06-26 10:16 | Discharge Summary ---
Providers - Providers Patient information: Note initiated : 06/26/17 at 10:15 am Service Date, if different from initiated Date: [] Patient: Sven Michaels 81 y/o M admitted on 06/25/17 for Abdominal Pain/ Constipation. Chief Complaint: [] Date of admission: 06/23/17 Discharge date: 06/26/17 Attending physician: Sadiq Rodriguez Hospitalization Hospital course: 81-year-old male admitted with severe constipation with crampy abdominal pain nausea and vomiting. He was treated very aggressively in the emergency room but had continued symptoms with inability to evacuate his distal colon and rectum. He has a history of chronic tramadol use and had narcotic induced constipation. He was treated with milk of molasses enemas, Relistor and Reglan. After 24 hours he started having better results and he finally evacuate his colon. He however had continued lower abdominal pain and had dilated proximal bowel. Follow-up CT showed thickening of the rectosigmoid with inflammation in the perirectal space without abscess. The patient does not have bleeding and he is having regular bowel movements. He was treated with antibiotics and is now doing well. His white count has returned to normal and he is afebrile.. He is tolerating the diet and is stable for discharge home. He will be discharged on Levaquin and Flagyl for 10 days and will be followed up in the office in 2 weeks. He will be scheduled for follow- up colonoscopy. Discharge diagnosis: Severe constipation with colonic obstruction Secondary discharge diagnosis: Moderately severe proctitis Hypertension Mild dehydration Reason for admission: Severe abdominal pain with nausea and vomiting Pertinent studies/significant findings: CT of abdomen and pelvis with contrast Complications: None Exam Temp Pulse Resp BP Pulse Ox 98.2 F 64 16 130/78 94 06/26/17 07:18 06/26/17 07:18 06/26/17 07:18 06/26/17 07:18 06/26/17 07:18 - General physical appearance well developed, well nourished, no distress - Eyes PERRL, normal ocular movement - ENT normal pinna, normal nares, normal mucosa, no hearing loss, no congestion - Head Head exam IM: Present: atraumatic, normocephalic - Neck no masses, no bruits, trachea midline, no lymphadectomy, no venous distension - Cardiovascular Cardiovascular exam IM: Present: normal rate and rhythm, RRR, +S1, +S2. Absent : JVD - Respiratory normal expansion, normal respiratory effort, clear to percussion, clear to auscultation - Abdomen Abdomen: Present: soft, non tender, bowel sounds Hernia: Present: none - Genitourinary Present: normal penis with no external lesions - Rectum Rectum: Present: normal sphincter tone, no hemorrhoids, no tenderness, no masses , no bleeding - Integumentary Present: no rash, no growths, no abnormal pigmentation - Neurologic Present: normal coordination, normal sensation - Musculoskeletal Present: normal gait, normal posture - Psychiatric Present: oriented to time, oriented to person, oriented to place, speech is normal, memory intact Discharge Plan - Patient/Caregiver Discharge Instructions Activity: increase activity as tolerated Diet: Regular Diet Additional Instructions: MiraLAX 17 g in 8 ounces liquid once or twice a day Office visit in 2 weeks Prescriptions: Levofloxacin [Levaquin] 500 mg PO DAILY #14 tablet metroNIDAZOLE [Flagyl] 500 mg PO Q6 #60 tablet - Follow up Plan Follow up with: Morro Goodwin DO [Primary Care Provider] - Disposition: Home, Self-Care Prognosis: Good Rehab Potential: Good I certify that the patient requires SNF services.: No Overall status at discharge: patient is not back to baseline Pending Studies Resuscitation Status Full Code Diet Regular Diet Start SatJun 24 Breakfast Acetaminophen (Tylenol) 650 mg PO Q4HP PRN PRN Reason: PAIN/FEVER > 101 Last Admin: 06/26/17 04:55 Dose: 650 mg Admin: 06/25/17 22:28 Dose: 650 mg Admin: 06/25/17 11:39 Dose: 650 mg Hydromorphone HCl (Dilaudid) 1 mg IV Q2HP PRN PRN Reason: Pain Last Admin: 06/24/17 15:20 Dose: 1 mg Admin: 06/24/17 09:21 Dose: 1 mg Admin: 06/23/17 23:18 Dose: 1 mg Admin: 06/23/17 19:03 Dose: 1 mg Admin: 06/23/17 16:21 Dose: 1 mg Admin: 06/23/17 13:25 Dose: 1 mg Admin: 06/23/17 10:50 Dose: 1 mg Admin: 06/23/17 08:48 Dose: 1 mg Admin: 06/23/17 05:42 Dose: 1 mg Admin: 06/23/17 04:20 Dose: 1 mg Admin: 06/23/17 01:06 Dose: 1 mg Admin: 06/22/17 22:15 Dose: 1 mg Metronidazole (Flagyl) 500 mg in 100 mls @ 100 mls/hr IV Q6H [facility] Last Infusion: 06/26/17 05:55 Dose: 100 mls/hr Admin: 06/26/17 04:54 Dose: 100 mls/hr Infusion: 06/26/17 00:32 Dose: 100 mls/hr Admin: 06/25/17 23:32 Dose: 100 mls/hr Infusion: 06/25/17 19:44 Dose: 100 mls/hr Admin: 06/25/17 18:44 Dose: 100 mls/hr Infusion: 06/25/17 12:38 Dose: 100 mls/hr Admin: 06/25/17 11:38 Dose: 100 mls/hr Infusion: 06/25/17 06:03 Dose: 100 mls/hr Admin: 06/25/17 05:03 Dose: 100 mls/hr Infusion: 06/25/17 00:33 Dose: 100 mls/hr Admin: 06/24/17 23:33 Dose: 100 mls/hr Infusion: 06/24/17 19:12 Dose: 100 mls/hr Admin: 06/24/17 18:12 Dose: 100 mls/hr Infusion: 06/24/17 15:10 Dose: 100 mls/hr Admin: 06/24/17 13:53 Dose: 100 mls/hr Piperacillin Sod/Tazobactam (Sod 3.375 gm/ Dextrose) 50 mls @ 100 mls/hr IV Q6H [facility] Last Infusion: 06/26/17 08:35 Dose: 100 mls/hr Admin: 06/26/17 08:05 Dose: 100 mls/hr Infusion: 06/26/17 03:20 Dose: 100 mls/hr Admin: 06/26/17 02:51 Dose: 100 mls/hr Infusion: 06/25/17 21:27 Dose: 100 mls/hr Admin: 06/25/17 20:57 Dose: 100 mls/hr Infusion: 06/25/17 14:47 Dose: 100 mls/hr Admin: 06/25/17 14:17 Dose: 100 mls/hr Infusion: 06/25/17 08:10 Dose: 0 mls/hr Admin: 06/25/17 07:40 Dose: 100 mls/hr Infusion: 06/25/17 02:20 Dose: 100 mls/hr Admin: 06/25/17 01:50 Dose: 100 mls/hr Infusion: 06/24/17 21:13 Dose: 100 mls/hr Admin: 06/24/17 20:43 Dose: 100 mls/hr Infusion: 06/24/17 17:35 Dose: 100 mls/hr Admin: 06/24/17 16:25 Dose: 100 mls/hr Methylnaltrexone Hephzibah (Relistor) 12 mg SQ DAILY [facility] Last Admin: 06/26/17 09:30 Dose: 12 mg Admin: 06/25/17 08:52 Dose: 12 mg Admin: 06/24/17 09:22 Dose: 12 mg Admin: 06/23/17 08:09 Dose: 12 mg Metoclopramide HCl (Reglan) 10 mg IV Q6 [facility] Last Admin: 06/26/17 04:55 Dose: 10 mg Admin: 06/25/17 23:32 Dose: 10 mg Admin: 06/25/17 18:09 Dose: 10 mg Admin: 06/25/17 12:25 Dose: 10 mg Admin: 06/25/17 05:25 Dose: 10 mg Admin: 06/24/17 23:33 Dose: 10 mg Admin: 06/24/17 18:12 Dose: 10 mg Admin: 06/24/17 13:54 Dose: 10 mg Admin: 06/24/17 05:42 Dose: 10 mg Admin: 06/23/17 23:25 Dose: 10 mg Admin: 06/23/17 17:48 Dose: 10 mg Admin: 06/23/17 12:05 Dose: 10 mg Admin: 06/23/17 08:09 Dose: 10 mg Polyethylene Glycol (Miralax) 17 gm PO Q6H [facility] Last Admin: 06/26/17 09:31 Dose: 17 gm Admin: 06/26/17 02:51 Dose: 17 gm Admin: 06/25/17 20:57 Dose: Not Given Admin: 06/25/17 14:34 Dose: 17 gm Admin: 06/25/17 08:55 Dose: 17 gm Admin: 06/25/17 01:54 Dose: Not Given Admin: 06/24/17 20:43 Dose: 17 gm Admin: 06/24/17 14:48 Dose: 17 gm Admin: 06/24/17 07:54 Dose: 17 gm Admin: 06/24/17 02:06 Dose: 17 gm Admin: 06/23/17 20:16 Dose: 17 gm Admin: 06/23/17 15:39 Dose: 17 gm Shift Summary 06/26/17 04:32 Shift Summary by Malcolm Crawford on R.A. Patient did not rest much tonight. He has been up AMB x2 w/ cane. PO Tylenol for back pain given @ 2230 - requests another dose later this am. Patient has voided large amts through the noc. He cont. to have loose BM' s. New IV to RT upper arm - scheduled Zosyn, Flagyl, & Reglan. Patient received [email or web address] rider last rocco. He declined his 1999 Miralax - did take his 0200 dose w/ apple juice. No skin issues. He is hoping to D/C later today. Initialized on 06/26/17 04:32 - END OF NOTE
== END 2017-06-26 12:06 | disposition home or self-care (01) | DRG 392 ==
LOC: ED 21:01 → MEDSUR 06-23 04:30 → INTOOBSV 06-23 05:06
PROVIDERS: ADMIT Family Medicine Adult Medicine; ATTEND Family Medicine Adult Medicine